=== PATIENT | female | born 1945 | race Asian ===

== ENCOUNTER 2018-09-13 13:07 | Inpatient (IN) | payer MEDICARE, OTHER | END 2018-09-15 13:01 | disposition home or self-care (01) | LOC: ER 13:07 → OVERFLOW 15:21 → EAST 18:05 | DX: K56.600 Partial intestinal obstruction, unspecified as to cause (principal); N39.0 Urinary tract infection, site not specified; R10.9 Unspecified abdominal pain; K76.89 Other specified diseases of liver ==